=== PATIENT | female | born 1980 | race Caucasian/White ===

== ENCOUNTER 2017-07-30 14:12 | Emergency (ER) | payer OTHER, MEDICAID ==
[~2017-07-30] VITALS: Ht 170.2 cm; Wt 72.6 kg
[~2017-07-30 14:12] MED LIST: ACETAMINOPHEN-1 EAC1 PO; ACYCLOVIR 200200 MG PO; ACYCLOVIR 400400 MG; ALPRAZOLAM1 MG PO; ATIVAN0.5 MG PO; AUGMENTIN 875875 MG PO; B12INJ; BACTRIM DS TAB1 EACH PO; BENTYL20 MG PO; CELEXA 10 MG TA10 M1 PO; CELEXA10 MG PO; FLEXERIL PO; FOLBIC RF TABL1 EACH IM; HYDROCODONE-AP1 EAC6 PO; HYDROCODONE-IB1 EACH PO; LAMICTAL100 MG PO; LAMICTAL5 MG PO; LIDOCAINE VISC100 M1 MM; MECLIZINE HCL25 M1 PO; MIRALAX17 GM PO; NOHOMEMEDICATIONS; NORCO 5-325 TA1 EACH PO; PENICILLIN VK500 MG PO; PEPCID40 MG PO; PERCOCET PO; PERMETHRIN60 GM TOP; PRENATAL; ROBAXIN 750 MG750 M1 PO; ULTRAM 50MG TAB50 MG PO; ULTRAM50 MG PO; VICODIN 5-3001 EACH PO; VOL-PLUS TABLE1 EACH; VOL-TAB RX TAB1 EACH; ZOFRAN 4 MG ORAL4 M1 DIS; ZOVIRAX800 MG PO
[2017-07-30 14:25] VITALS: BP 129/84
[2017-07-30] MEDS ORDERED: TRAMADOL 50 MG50 MG PO (14:34)
[2017-07-30] MEDS ORDERED: AMOXICILLIN 50500 MG PO (14:34)
== END 2017-07-30 15:00 | disposition home or self-care (01) ==
LOC: M.ERS 14:12
DX: K02.9 Dental caries, unspecified (principal); G43.909 Migraine, unspecified, not intractable, without status migrainosus; F17.210 Nicotine dependence, cigarettes, uncomplicated; Z90.49 Acquired absence of other specified parts of digestive tract; Z88.6 Allergy status to analgesic agent